=== PATIENT | female | born 1975 | race Caucasian/White ===

== ENCOUNTER 2018-09-27 22:31 | Emergency (ER) | payer BC ==
--- NOTE | 2018-09-27 23:24 | EDM.PDOC ---
ED HPI GENERAL MEDICAL PROBLEM - General Chief Complaint: Lower Extremity Injury/Pain Stated Complaint: DVT Time Seen by Provider: 09/27/18 22:31 Source of Information: Reports: Patient History Limitations: Reports: No Limitations - History of Present Illness INITIAL COMMENTS - FREE TEXT/NARRATIVE: Patient comes into the emergency department with concerns of a worsening blood clot in her left leg. Patient was just diagnosed on 09/24/2018 with a nonocclusive thrombus in the left popliteal and peroneal veins. Patient was instructed to start Coumadin. Patient's been on Coumadin throughout the week. She did have her INR checked today which was 2.1. Pt states that she has had pain and discomfort in that left leg entire time. She states that today the discomfort got worse. Originally the discomfort and pain was below the knee mid calf region, now the pain is above the knee on the posterior aspect of the thigh. She states that there is a palpable nodule. She says it's the same sensation feeling as her previous blood clot. She states the pain is described as sharp shooting. It hurts more when she touches it. She denies any numbness, tingling, swelling or cool sensation to her foot. She is nervous what the next step is if she has another clot in her leg. Onset: Gradual Severity: Mild Improves with: Reports: None Worsens with: Reports: Movement Associated Symptoms: Reports: No Other Symptoms - Related Data Allergies Allergy/AdvReac Type Severity Reaction Status Date / Time Sulfa (Sulfonamide Allergy Hives Verified 09/27/18 22:55 Antibiotics) Home Meds: Home Meds Warfarin Sodium 1 tab PO DAILY 09/27/18 [History] Past Medical History - Past Health History Medical/Surgical History: Denies Medical/Surgical History Social & Family History - Tobacco Use Smoking Status *Q: Former Smoker Used Tobacco, but Quit: Yes Month/Year Tobacco Last Used: 2014 Review of Systems - Review of Systems Review Of Systems: See Below Constitutional: Reports: No Symptoms Eyes: Reports: No Symptoms Ears: Reports: No Symptoms Nose: Reports: No Symptoms Mouth/Throat: Reports: No Symptoms Respiratory: Reports: No Symptoms Cardiovascular: Reports: No Symptoms GI/Abdominal: Reports: No Symptoms Genitourinary: Reports: No Symptoms Musculoskeletal: Reports: Leg Pain Skin: Reports: No Symptoms Neurological: Reports: No Symptoms Psychiatric: Reports: No Symptoms ED EXAM, GENERAL - Physical Exam Exam: See Below Exam Limited By: No Limitations General Appearance: Alert, WD/WN, No Apparent Distress Respiratory/Chest: No Respiratory Distress, Lungs Clear, Normal Breath Sounds, No Accessory Muscle Use, Chest Non-Tender Cardiovascular: Normal Peripheral Pulses, Regular Rate, Rhythm Extremities: Normal Range of Motion, Normal Capillary Refill, Leg Pain (left leg pain, red area over posterior thigh with hard nodule. Same formation appears on lower leg were known nonocclusive thrombus is located). No: Joint Swelling, Limited Range of Motion, Increased Warmth, Mottled, Redness Neurological: Alert, Oriented Psychiatric: Normal Affect, Normal Mood Skin Exam: Warm, Dry, Intact Course - Vital Signs Last Recorded V/S: Last Vital Signs Temp 36.7 C 09/27/18 22:56 Pulse 90 09/27/18 22:56 Resp 18 09/27/18 22:56 BP 141/91 H 09/27/18 22:56 Pulse Ox 97 09/27/18 22:56 Departure - Departure Time of Disposition: 12:25 Disposition: Home, Self-Care 01 Condition: Good Clinical Impression: Non-occlusive thrombus - Discharge Information *PRESCRIPTION DRUG MONITORING PROGRAM REVIEWED*: Not Applicable *COPY OF PRESCRIPTION DRUG MONITORING REPORT IN PATIENT AUNDREA: Not Applicable Instructions: Varicose Veins Referrals: Maricel Pro DO [Primary Care Provider] - Forms: ED Department Discharge Additional Instructions: 1. Rest 2. Elevate extremity 3. Can apply ice or heat over the affected leg 4. Place compression stockings on feet or Taurus wrap 5. Can make an appointment with Dr. Adhikari for vascular follow up here in [place] through [facility]. He comes once a month 6. Continue with your Coumadin 7. Follow up with PCP 8. Call with any questions or concerns you may have - Assessment/Plan Assessment:: 1. Leg pain Plan: 1. Consult completed with Dr. Onofre Hutchinson. His recommendation is to continue with current recommendations of Coumadin. Also start wrapping or wear compression socks. Dr. Adhikari would be more than willing to see pt when he comes to [place]. 2. Education was provided to the pt regarding wraps to the leg 3. Follow up information provided.
== END 2018-09-28 00:30 | disposition home or self-care (01) ==
LOC: VM.ED 22:31
DX: I82.4Z2 Acute embolism and thrombosis of unspecified deep veins of left distal lower extremity (principal); Z87.891 Personal history of nicotine dependence; Z79.01 Long term (current) use of anticoagulants; Z88.2 Allergy status to sulfonamides
CPT/HCPCS: 99283

== ENCOUNTER 2018-10-05 05:48 | Emergency (ER) | payer BC ==
--- NOTE | 2018-10-05 07:10 | EDM.PDOC ---
ED HPI GENERAL MEDICAL PROBLEM - General Chief Complaint: Lower Extremity Injury/Pain Stated Complaint: leg pain Time Seen by Provider: 10/05/18 06:05 Source of Information: Reports: Patient History Limitations: Reports: No Limitations - History of Present Illness INITIAL COMMENTS - FREE TEXT/NARRATIVE: PtMeagan presents to ER with erythema and warmth to the posterior aspect of her L calf, ecchymosis to the posterior aspect of the L thigh, and discomfort to the leg. She is currently being treated for a DVT. She is on coumadin. Her INR was 2.9 yesterday. Denies any fever or chills. No chest pain or shortness of breath. No nausea or vomiting. She states that a varicose vein ruptured in her thigh several days ago. She denies any trauma to the area. Onset: Today Location: Reports: Lower Extremity, Left Quality: Reports: Ache, Throbbing Severity: Severe Improves with: Reports: Rest Worsens with: Reports: Movement Left Leg Pain Score (Numeric/FACES): 3 - Related Data Allergies Allergy/AdvReac Type Severity Reaction Status Date / Time Sulfa (Sulfonamide Allergy Hives Verified 10/05/18 05:48 Antibiotics) Home Meds: Home Meds Warfarin Sodium 1 tab PO ASDIRECTED 09/27/18 [History] Warfarin Sodium 2.5 mg PO ASDIRECTED 10/05/18 [History] Past Medical History - Past Health History Medical/Surgical History: Denies Medical/Surgical History Social & Family History - Tobacco Use Smoking Status *Q: Former Smoker Used Tobacco, but Quit: Yes Month/Year Tobacco Last Used: 3 years ago Review of Systems - Review of Systems Review Of Systems: ROS reveals no pertinent complaints other than HPI. ED EXAM, GENERAL - Physical Exam Exam: See Below Exam Limited By: No Limitations General Appearance: Alert, WD/WN, No Apparent Distress Peripheral Pulses: 4+: Posterior Tibial (L) Extremities: Increased Warmth, Redness, Other (erythema and warmth noted to L posterior lower leg. There is a large hematoma to proximal L thigh posteriorly. CMS is intact) Course - Vital Signs Last Recorded V/S: Last Vital Signs Temp 36.6 C 10/05/18 05:50 Pulse 89 10/05/18 05:50 Resp 18 10/05/18 05:50 BP 148/79 H 10/05/18 05:50 Pulse Ox 96 10/05/18 05:50 - Orders/Labs/Meds Labs: Laboratory Tests 10/05/18 10/05/18 10/05/18 Range/Units 06:25 06:25 06:25 WBC 9.0 (4.0-10.0) x10^3/uL RBC 5.19 (4.00-5.50) x10^6/uL Hgb 14.6 (12.0-16.0) g/dL Hct 45.4 (33.0-47.0) % MCV 87.5 (78.0-93.0) fL MCH 28.1 (26.0-32.0) pg MCHC 32.2 (32.0-36.0) g/dL RDW Coeff of Ayleen 13.3 (10.0-15.0) % Plt Count 355 (130-400) x10^3/uL Neut % (Auto) 65.3 (50.0-80.0) % Lymph % (Auto) 27.4 (25.0-50.0) % [place] % (Auto) 5.6 (2.0-11.0) % Eos % (Auto) 1.3 (0.0-4.0) % Baso % (Auto) 0.4 (0.2-1.2) % PT 28.2 H (9.6-11.4) SEC INR 2.7 (2.0-3.5) C-Reactive Protein 0.6 (<=0.9) mg/dL Departure - Departure Time of Disposition: 07:10 Disposition: Home, Self-Care 01 Condition: Good Clinical Impression: DVT (deep venous thrombosis), Phlebitis - Discharge Information Instructions: Phlebitis, [id number] Referrals: PCP,Unobtain [Primary Care Provider] - Forms: ED Department Discharge Additional Instructions: Keep your leg elevated as much as possible. Your INR is theraputic [place] 5/325mg 1 every 6 hours as needed for pain. Follow-up in clinic in 5-7 days - Assessment/Plan Plan: Keep your leg elevated as much as possible. Your INR is theraputic today. [place] 5/325mg 1 every 6 hours as needed for pain. Follow-up in clinic in 5-7 days
== END 2018-10-05 07:05 | disposition home or self-care (01) ==
LOC: VM.ED 05:48
DX: I82.4Z2 Acute embolism and thrombosis of unspecified deep veins of left distal lower extremity (principal); Z88.2 Allergy status to sulfonamides; Z87.891 Personal history of nicotine dependence
CPT/HCPCS: 36415; 85025; 85610; 86140; 99283

== ENCOUNTER 2022-11-07 09:05 | Day surgery (SDC) | payer BC ==
[2022-11-07] MEDS: Lactated Ringers 1,000 ML IV SCH (09:23)
[2022-11-07] MEDS ORDERED: Propofol 200 MG/20 ML SDV ONE ×2 (10:21→10:35)
[2022-11-07] MEDS ORDERED: fentaNYL 100 MCG/2 ML SDV ONE (10:21)
== END 2022-11-07 12:00 | disposition home or self-care (01) ==
LOC: VM.SDS 09:05
PROVIDERS: ATTEND Surgery
DX: Z12.11 Encounter for screening for malignant neoplasm of colon (principal); K57.30 Diverticulosis of large intestine without perforation or abscess without bleeding; F41.9 Anxiety disorder, unspecified; F32.1 Major depressive disorder, single episode, moderate; E78.5 Hyperlipidemia, unspecified; E66.9 Obesity, unspecified; R73.01 Impaired fasting glucose; R59.0 Localized enlarged lymph nodes; D68.51 Activated protein C resistance; Z88.2 Allergy status to sulfonamides; Z88.8 Allergy status to other drugs, medicaments and biological substances; Z79.899 Other long term (current) drug therapy; Z87.891 Personal history of nicotine dependence
CPT/HCPCS: J2704; J3010; J7120